=== PATIENT | male | born 1995 | race Caucasian/White ===

== ENCOUNTER 2023-08-10 13:50 | Emergency (ER) | payer OTHER ==
[~2023-08-10] VITALS: Ht 177.8 cm; Wt 67.1 kg
[2023-08-10 16:09] VITALS: BP 130/78; TEMP 98.7; O2SAT 98
== END 2023-08-10 16:10 | disposition home or self-care (01) ==
LOC: ER 14:07
DX: Z04.1 Encounter for examination and observation following transport accident (principal); R51.9 Headache, unspecified; Z60.2 Problems related to living alone; V89.0XXA Person injured in unspecified motor-vehicle accident, nontraffic, initial encounter; Y93.89 Activity, other specified; Y92.89 Other specified places as the place of occurrence of the external cause; Y99.8 Other external cause status
CPT/HCPCS: 99284; 72125; 70450; 70486; A6403